=== PATIENT | female | born 1985 | race Caucasian/White ===

== ENCOUNTER 2018-06-02 19:09 | Emergency (ER) | payer MEDICARE, MEDICAID ==
[2018-06-02] MEDS ORDERED: HYDROcodone/Acetaminophen 10/325 mg Tablet ONE (19:42)
[2018-06-02] MEDS ORDERED: Ibuprofen 800 MG TAB ONE (19:42)
[2018-06-02 19:47] LABS: Clarity Clear (Clear)
[2018-06-02 19:48] LABS: Bilirubin Negative (Negative); Blood, Urine Moderate (Negative); Glucose, Urine (Dipstick) Negative (Negative); Leukocyte Negative (Negative); Nitrite Negative (Negative); Protein, Urine (Dipstick) Negative (Neg-Trace); Specific Gravity, Urine 1.025 (1.005-1.030); Urobilinogen 0.2 mg/dL (0.2-1.0)
[2018-06-02 19:51] LABS: Bacteria/HPF 1+ HPF (None Seen); Squamous Epithelial 0-3 HPF (0-3); WBC/HPF 0-3 HPF (0-3)
== END 2018-06-02 20:00 | disposition home or self-care (01) ==
LOC: BURERS 19:09
DX: M54.5 Low back pain (principal); E03.9 Hypothyroidism, unspecified; F32.9 Major depressive disorder, single episode, unspecified; F17.210 Nicotine dependence, cigarettes, uncomplicated; Z79.899 Other long term (current) drug therapy
CPT/HCPCS: 81003; 81015; 99283

== ENCOUNTER 2019-08-12 09:53 | Emergency (ER) | payer MEDICARE, MEDICAID | END 2019-08-12 10:24 | disposition home or self-care (01) | LOC: BURERS 09:53 | DX: M25.542 Pain in joints of left hand (principal); M25.541 Pain in joints of right hand; R21 Rash and other nonspecific skin eruption; E03.9 Hypothyroidism, unspecified; F32.9 Major depressive disorder, single episode, unspecified; Z87.891 Personal history of nicotine dependence | CPT/HCPCS: 99283 ==

== ENCOUNTER 2019-10-01 10:48 | Emergency (ER) | payer MEDICARE, MEDICAID | END 2019-10-01 11:32 | disposition home or self-care (01) | LOC: BURERS 10:48 | DX: H66.91 Otitis media, unspecified, right ear (principal); E03.9 Hypothyroidism, unspecified; F32.9 Major depressive disorder, single episode, unspecified; F17.210 Nicotine dependence, cigarettes, uncomplicated | CPT/HCPCS: 99281 ==

== ENCOUNTER 2020-09-25 17:05 | Emergency (ER) | payer MEDICARE, MEDICAID ==
[2020-09-25 18:07] LABS: Bilirubin Negative (Negative); Blood, Urine Trace (Negative); Clarity Slightly Cloudy (Clear); Glucose, Urine (Dipstick) Negative (Negative); Ketone, Urine Negative (Negative); Leukocyte Moderate (Negative); Nitrite Negative (Negative); Protein, Urine (Dipstick) Negative (Neg-Trace); Specific Gravity, Urine 1.015 (1.005-1.030)
[2020-09-25 18:11] LABS: Pregnancy Test - Urine (BHCG) Negative (Negative)
[2020-09-25 18:12] LABS: Pregu Control Background? CLEAR/WHITE (CLR/WHITE); Pregu Control Bar Appear? YES (CONTROL BAR); Specific Gravity 1.015 (1.002-1.036)
[2020-09-25 18:20] LABS: Bacteria/HPF 1+ HPF (None Seen); RBC/HPF 0-3 HPF (0-3); Yeast-Budding Rare HPF (None Seen); Yeast-Hyphae Rare HPF (None Seen)
[2020-09-25 18:21] LABS: Trichomonas/HPF 1+ HPF (None Seen)
[2020-09-28 17:45] LABS: Chlam.trachomatis by PCR,Urine Not Detected (NotDetected)
== END 2020-09-25 18:36 | disposition home or self-care (01) ==
LOC: BURERS 17:05
DX: A59.01 Trichomonal vulvovaginitis (principal); B37.3 Candidiasis of vulva and vagina; E03.9 Hypothyroidism, unspecified; F17.210 Nicotine dependence, cigarettes, uncomplicated; Z79.899 Other long term (current) drug therapy
CPT/HCPCS: 36416; 81003; 81015; 81025; 87491; 87591; 99283

== ENCOUNTER 2020-10-09 23:09 | Emergency (ER) | payer MEDICARE, MEDICAID | END 2020-10-10 00:05 | disposition home or self-care (01) | LOC: BURERS 23:09 | DX: Z00.00 Encounter for general adult medical examination without abnormal findings (principal); E03.9 Hypothyroidism, unspecified; F17.210 Nicotine dependence, cigarettes, uncomplicated; Z79.899 Other long term (current) drug therapy | CPT/HCPCS: 99281 ==

== ENCOUNTER 2020-10-16 20:41 | Emergency (ER) | payer MEDICARE, MEDICAID ==
[2020-10-16 21:25] LABS: Bilirubin Negative (Negative); Blood, Urine Trace (Negative); Clarity Clear (Clear); Glucose, Urine (Dipstick) Negative (Negative); Ketone, Urine Negative (Negative); Leukocyte Negative (Negative); Nitrite Negative (Negative); Protein, Urine (Dipstick) Negative (Neg-Trace); Urobilinogen 0.2 mg/dL (Less than 2)
[2020-10-16 21:34] LABS: Bacteria/HPF Rare-Few HPF (None Seen); RBC/HPF 0-3 HPF (0-3); Squamous Epithelial 0-3 HPF (0-3); WBC/HPF 0-3 HPF (0-3)
[2020-10-19 20:08] LABS: Chlamydia by PCR Not Detected (NotDetected); GC by PCR Not Detected (NotDetected)
== END 2020-10-16 21:49 | disposition home or self-care (01) ==
LOC: BURERS 20:41
DX: N76.0 Acute vaginitis (principal); E03.9 Hypothyroidism, unspecified; F17.210 Nicotine dependence, cigarettes, uncomplicated; Z79.899 Other long term (current) drug therapy
CPT/HCPCS: 36416; 81003; 81015; 87480; 87491; 87510; 87591; 87660; 99283

== ENCOUNTER 2020-11-09 16:00 | Emergency (ER) | payer MEDICARE, OTHER | END 2020-11-09 16:20 | disposition home or self-care (01) | LOC: BURERS 16:00 | DX: J02.9 Acute pharyngitis, unspecified (principal); E03.9 Hypothyroidism, unspecified; F17.210 Nicotine dependence, cigarettes, uncomplicated | CPT/HCPCS: 99283 ==

== ENCOUNTER 2020-12-13 22:55 | Emergency (ER) | payer MEDICARE, MEDICAID ==
[2020-12-13] MEDS ORDERED: AMOXicillin 250 MG CAP ONE (23:29)
== END 2020-12-13 23:35 | disposition home or self-care (01) ==
LOC: BURERS 22:55
DX: H66.91 Otitis media, unspecified, right ear (principal); J06.9 Acute upper respiratory infection, unspecified; E03.9 Hypothyroidism, unspecified; F17.210 Nicotine dependence, cigarettes, uncomplicated
CPT/HCPCS: 99283

== ENCOUNTER 2021-01-15 17:01 | Emergency (ER) | payer MEDICARE, OTHER ==
[2021-01-15] MEDS ORDERED: Bupivacaine 0.5% 10 ML VIAL ONE (17:28)
== END 2021-01-15 18:16 | disposition home or self-care (01) ==
LOC: BURERS 17:01
DX: S63.281A Dislocation of proximal interphalangeal joint of left index finger, initial encounter (principal); E03.9 Hypothyroidism, unspecified; I10 Essential (primary) hypertension; F17.210 Nicotine dependence, cigarettes, uncomplicated; W13.0XXA Fall from, out of or through balcony, initial encounter
CPT/HCPCS: 26770; J3490

== ENCOUNTER 2021-02-22 18:31 | Emergency (ER) | payer MEDICAID, MEDICARE ==
[2021-02-23 14:57] LABS: SARS-CoV-2 PCR by NAA DETECTED (NotDetected)
== END 2021-02-22 18:45 | disposition home or self-care (01) ==
LOC: BURERS 18:31
DX: U07.1 COVID-19 (principal); E03.9 Hypothyroidism, unspecified; F17.210 Nicotine dependence, cigarettes, uncomplicated
CPT/HCPCS: 99281; U0003; U0005

== ENCOUNTER 2021-05-25 20:07 | Emergency (ER) | payer MEDICARE, OTHER ==
[2021-05-25] MEDS ORDERED: Ketorolac Tromethamine 60 MG/2 ML VIAL ONE (20:36)
== END 2021-05-25 20:51 | disposition home or self-care (01) ==
LOC: BURERS 20:07
DX: M54.41 Lumbago with sciatica, right side (principal); M54.42 Lumbago with sciatica, left side; E03.9 Hypothyroidism, unspecified; F17.210 Nicotine dependence, cigarettes, uncomplicated; Z79.899 Other long term (current) drug therapy
CPT/HCPCS: 96372; 99283; J1885

== ENCOUNTER 2021-07-06 18:19 | Emergency (ER) | payer MEDICARE, MEDICAID ==
[2021-07-06] MEDS ORDERED: Ibuprofen 800 MG TAB ONE (18:53)
== END 2021-07-06 19:40 | disposition home or self-care (01) ==
LOC: BURERS 18:19
DX: S93.402A Sprain of unspecified ligament of left ankle, initial encounter (principal); E03.9 Hypothyroidism, unspecified; F17.210 Nicotine dependence, cigarettes, uncomplicated; W10.9XXA Fall (on) (from) unspecified stairs and steps, initial encounter; Z79.899 Other long term (current) drug therapy

== ENCOUNTER 2021-09-08 12:27 | Emergency (ER) | payer MEDICARE, MEDICAID ==
[2021-09-08 13:14] LABS: Bilirubin Negative (Negative); Blood, Urine Large (Negative); Clarity Cloudy (Clear); Glucose, Urine (Dipstick) Negative (Negative); Ketone, Urine Negative (Negative); Leukocyte Small (Negative); Nitrite Negative (Negative); Protein, Urine (Dipstick) Negative (Neg-Trace); Urobilinogen 0.2 mg/dL (Less than 2)
[2021-09-08 13:16] LABS: Specific Gravity, Urine 1.025 (1.002-1.036)
[2021-09-08 13:22] LABS: Bacteria/HPF 2+ HPF (None Seen); Mucous/LPF 2+ LPF (<2+); RBC/HPF Greater than 50 HPF (0-3); Squamous Epithelial 0-3 HPF (0-3)
[2021-09-09 12:32] LABS: Chlam.trachomatis by PCR,Urine Not Detected (NotDetected)
== END 2021-09-08 14:00 | disposition home or self-care (01) ==
LOC: BURERS 12:27
DX: O20.0 Threatened abortion (principal); O23.41 Unspecified infection of urinary tract in pregnancy, first trimester; N39.0 Urinary tract infection, site not specified; O16.1 Unspecified maternal hypertension, first trimester; O99.281 Endocrine, nutritional and metabolic diseases complicating pregnancy, first trimester; E03.9 Hypothyroidism, unspecified; O99.331 Smoking (tobacco) complicating pregnancy, first trimester; F17.210 Nicotine dependence, cigarettes, uncomplicated; Z3A.01 Less than 8 weeks gestation of pregnancy
CPT/HCPCS: 36415; 81003; 81015; 84702; 87491; 87591; 99284

== ENCOUNTER 2022-02-11 00:17 | Emergency (ER) | payer MEDICARE, OTHER ==
[2022-02-11] MEDS ORDERED: Ibuprofen 200 MG TAB ONE (00:43)
== END 2022-02-11 00:50 | disposition home or self-care (01) ==
LOC: BURERS 00:17
DX: M25.512 Pain in left shoulder (principal); I10 Essential (primary) hypertension; E03.9 Hypothyroidism, unspecified; F17.210 Nicotine dependence, cigarettes, uncomplicated; Z79.899 Other long term (current) drug therapy
CPT/HCPCS: 99283

== ENCOUNTER 2022-03-16 12:07 | Outpatient (CLI) | payer MEDICARE, OTHER | END 2022-03-16 12:08 | disposition home or self-care (01) | LOC: BURRAD 12:07 | PROVIDERS: ATTEND Family Medicine | DX: M25.512 Pain in left shoulder (principal) ==

== ENCOUNTER 2022-06-16 19:02 | Emergency (ER) | payer MEDICARE, OTHER | END 2022-06-16 19:30 | disposition home or self-care (01) | LOC: BURERS 19:02 | DX: J06.9 Acute upper respiratory infection, unspecified (principal); H61.23 Impacted cerumen, bilateral; E03.9 Hypothyroidism, unspecified; I10 Essential (primary) hypertension; F17.210 Nicotine dependence, cigarettes, uncomplicated; Z79.899 Other long term (current) drug therapy | CPT/HCPCS: 99282 ==

== ENCOUNTER 2022-08-21 16:03 | Emergency (ER) | payer MEDICARE, OTHER ==
[2022-08-21] MEDS ORDERED: Ketorolac Tromethamine 60 MG/2 ML VIAL ONE (17:50)
== END 2022-08-21 17:54 | disposition home or self-care (01) ==
LOC: BURERS 16:03
DX: I10 Essential (primary) hypertension (principal); E03.9 Hypothyroidism, unspecified; F17.210 Nicotine dependence, cigarettes, uncomplicated
CPT/HCPCS: 96372; 99283; J1885